=== PATIENT | male | born 1995 | race Two or more races ===

== ENCOUNTER 2017-05-29 00:24 | Emergency (ER) | payer SELFPAY ==
--- NOTE | 2017-05-29 00:32 | EDPHY ---
H & P Stated Complaint: ETOH and marijuana at concert [employer], unable to ambulate Time Seen by Provider: 05/29/17 00:25 HPI/ROS: Chief Complaint: Alcohol intoxication, vomiting HPI: 22-year-old male who was found outside a [employer] theater intoxicated. Patient passed out after vomiting. Is unable to ambulate on their own. Patient brought in by EMS for further evaluation. No obvious signs of trauma per EMS. Remainder of history is unobtainable secondary to the patient's intoxication. ROS: Unobtainable secondary to the patient's intoxication PMH: Unknown Medications: Unknown Allergies: Unknown Social History: Positive for alcohol Family History: non-contributory Physical Exam: Gen: Somnolent, responds to painful stimuli, maintaining airway, smells of alcohol and emesis HEENT: Atraumatic Nose: no epistaxis or deformity Eyes: PERRLA, EOMI Mouth: Moist mucosa Neck: Supple, no step-offs or deformity Chest: Atraumatic, lungs clear to auscultation Heart: S1, S2 normal, no murmur Abd: Soft, non-tender, no guarding Back: Atraumatic Ext: no edema, atraumatic Skin: no rash Neuro: Sensation grossly intact, Strength 5/5 in bilateral upper and lower extremities - Medical/Surgical History Hx Asthma: No Hx Chronic Respiratory Disease: No Hx Diabetes: No Hx Cardiac Disease: No Hx Renal Disease: No Hx Cirrhosis: No Hx Alcoholism: No Hx HIV/AIDS: No Hx Splenectomy or Spleen Trauma: No Other PMH: none - Social History Smoking Status: Unknown if ever smoked Constitutional: Initial Vital Signs Temperature (C) 36.8 C 05/29/17 00:29 Heart Rate 88 05/29/17 00:29 Respiratory Rate 12 05/29/17 00:29 Blood Pressure 98/67 L 05/29/17 00:29 O2 Sat (%) 92 05/29/17 00:29 O2 Delivery Mode Room Air Allergies/Adverse Reactions: No Known Allergies Allergy (Unverified 05/29/17 00:28) Home Medications: Medication Instructions Recorded NK [No Known Home Meds] 05/29/17 Medical Decision Making ED Course/Re-evaluation: Patient is now awake and appropriate. Ambulating unassisted to the bathroom. No current complaints. Departure - Departure Disposition: Home, Routine, Self-Care Clinical Impression: Alcoholic intoxication Condition: Good Instructions: Alcohol Intoxication (ED) Additional Instructions: Please try to avoid binge drinking alcohol. Referrals: Bryson Roberts MD [Medical Doctor] - As per Instructions
[2017-05-29 06:10] VITALS: BP 109/59; PULSE 67; RESP 16; TEMP 97.9; O2SAT 96
== END 2017-05-29 06:10 | disposition home or self-care (01) ==
DX: F10.129 Alcohol abuse with intoxication, unspecified (principal)